=== PATIENT | male | born 1945 | race African-American/Black ===

== ENCOUNTER 2016-12-28 06:02 | Emergency (ER) | payer MEDICARE, BC, OTHER ==
[~2016-12-28] VITALS: Ht 177.8 cm; Wt 61.9 kg
[2016-12-28] MEDS ORDERED: ALBUTEROL (0.083%) 2.5MG/3ML NEB HHN STA (08:49)
[2016-12-28] MEDS ORDERED: PREDNISONE 20MG TABLET PO STA (08:49)
[2016-12-28] MEDS ORDERED: IPRATROPIUM BROMIDE (0.02%) 0.5MG/2.5ML NEB HHN STA (08:49)
[2016-12-28 11:20] VITALS: BP 138/62
== END 2016-12-28 10:50 | disposition home or self-care (01) ==
LOC: ER 08:44
DX: R06.02 Shortness of breath (principal); J44.9 Chronic obstructive pulmonary disease, unspecified; Z71.6 Tobacco abuse counseling
CPT/HCPCS: 71010; 99284; 99406; J7611

== ENCOUNTER 2016-12-28 11:23 | Emergency (ER) | payer MEDICARE, BC, OTHER | END 2016-12-28 12:58 | disposition left against medical advice (07) | LOC: ER 12:23 | DX: Z53.21 Procedure and treatment not carried out due to patient leaving prior to being seen by health care provider (principal) ==

== ENCOUNTER 2018-03-12 12:58 | Emergency (ER) | payer MEDICARE, BC, OTHER ==
[~2018-03-12] VITALS: Ht 177.8 cm; Wt 61.0 kg
[2018-03-12 13:09] VITALS: BP 129/54
== END 2018-03-12 16:30 | disposition home or self-care (01) ==
LOC: ER 16:20
DX: M54.9 Dorsalgia, unspecified (principal); J02.9 Acute pharyngitis, unspecified; J44.9 Chronic obstructive pulmonary disease, unspecified; Z98.890 Other specified postprocedural states
CPT/HCPCS: 99283

== ENCOUNTER 2018-07-01 13:36 | Inpatient (IN) | payer MEDICARE, BC, OTHER ==
[~2018-07-01] VITALS: Ht 185.4 cm; Wt 72.6 kg
[2018-07-01] MEDS ORDERED: ALBUTEROL (0.083%) 2.5MG/3ML NEB HHN STA (16:15)
[2018-07-01] MEDS ORDERED: MAGNESIUM 2 G PREMIX 50 ML IV STA (16:15)
[2018-07-01] MEDS ORDERED: IPRATROPIUM BROMIDE (0.02%) 0.5MG/2.5ML NEB HHN STA (16:15)
[2018-07-01] MEDS ORDERED: METHYLPREDNISOLONE SOD SUCC 125 MG/2 ML VIAL IV STA (16:15)
[2018-07-01 17:19] LABS: BASOPHILS % 1.1 % (0.0-2.0); EOSINOPHILS % 2.5 % (0.0-5.0); HEMATOCRIT. 47.9 % (42.0-52.0); HEMOGLOBIN. 16.1 g/dL (14.0-18.0); LYMPHOCYTES % 15.1 % (20.0-50.0); MEAN CORPUSCULAR HEMOGLOBIN 29.9 pg (28.0-32.0); MEAN PLATELET VOLUME 7.8 fl (7.4-10.4); MONOCYTES % 7.9 % (2.0-8.0); NEUTROPHILS % 73.4 % (40.0-76.0); PLATELET 280 x1000/uL (130-400); RED BLOOD CELL COUNT 5.38 mill/uL (4.7-6.1); RED CELL DISTRIBUTION WIDTH 13.2 % (11.6-14.6)
[2018-07-01 17:26] LABS: CHLORIDE 106 mEq/L (98-107)
[2018-07-01 17:28] LABS: PARTIAL THROMBOPLASTIN TIME 29.6 sec (23.4-31.0); PROTHROMBIN TIME 10.5 sec (9.1-11.1)
[2018-07-01] MEDS ORDERED: LEVOFLOXACIN 750MG PREMIX 150 ML IV ONE (18:15)
[2018-07-01 20:00] VITALS: BP 135/55
[2018-07-01 23:03] VITALS: BP 137/69
[2018-07-02] VITALS: BP 124/74
[2018-07-02] MEDS ORDERED: GUAIFENESIN 200MG/10ML SUGAR FREE UDC PO PRN (03:00)
[2018-07-02] MEDS ORDERED: ACETAMINOPHEN 325MG TABLET PO PRN (03:00)
[2018-07-02] MEDS ORDERED: CLONIDINE 0.1MG TABLET PO PRN (03:00)
[2018-07-02] MEDS ORDERED: ONDANSETRON HCL 4MG/2ML INJ IV PRN (03:00)
[2018-07-02] MEDS ORDERED: DIPHENHYDRAMINE 50MG/ML VIAL IV PRN (03:00)
[2018-07-02] MEDS ORDERED: MAGNESIUM/ALUMINUM HYDROXIDE/SIMETHICONE 30ML UDC PO PRN (03:00)
[2018-07-02] MEDS ORDERED: LORAZEPAM 2MG/ML CPJ IV PRN (03:00)
[2018-07-02] MEDS ORDERED: DOCUSATE SODIUM 100MG CAPSULE PO PRN (03:00)
[2018-07-02] MEDS ORDERED: NA PHOS,M-B/NA PHOS,DI-BA ENEMA 118ML PR PRN (03:00)
[2018-07-02] MEDS ORDERED: HYDRALAZINE 20MG/ML VIAL IV PRN (03:00)
[2018-07-02] MEDS ORDERED: HYDROCODONE/ACETAMINOPHEN 5/325MG TABLET PO PRN (03:00)
[2018-07-02] MEDS: HYDROMORPHONE HCL/PF 2MG/ML CPJ IV PRN ×3 (03:27→22:35)
[2018-07-02 04:00] VITALS: BP 121/60
[2018-07-02] MEDS: METHYLPREDNISOLONE SOD SUCC 125 MG/2 ML VIAL IV SCH ×4 (05:23→22:31)
[2018-07-02] MEDS: LEVOFLOXACIN 500MG PREMIX 100 ML IV SCH (05:24)
[2018-07-02] MEDS: SODIUM CHLORIDE 0.9% INJ 3ML FLUSH IVF SCH ×2 (05:25→14:45)
[2018-07-02 08:00] VITALS: BP 148/58
[2018-07-02] MEDS: ASPIRIN 81MG EC TABLET PO SCH (09:02)
[2018-07-02] MEDS: ENOXAPARIN 40MG/0.4ML SYR SUBCUT SCH (09:03)
[2018-07-02 11:27] LABS: CREATINE KINASE 234 IU/L (39-308)
[2018-07-02 11:31] LABS: CREATINE KINASE MB FRACTION 4.4 ng/mL (0.5-3.6)
[2018-07-02 12:00] VITALS: BP 136/68
[2018-07-02 16:00] VITALS: BP 170/87
[2018-07-02 20:00] VITALS: BP 116/51
[2018-07-03] VITALS: BP 121/60
[2018-07-03] MEDS: IPRATROPIUM/ALBUTEROL 0.5-3(2.5)MG/3ML NEB INH PRN ×2 (01:02→22:32)
[2018-07-03 04:00] VITALS: BP 124/66
[2018-07-03] MEDS: LEVOFLOXACIN 500MG PREMIX 100 ML IV SCH (04:56)
[2018-07-03] MEDS: METHYLPREDNISOLONE SOD SUCC 125 MG/2 ML VIAL IV SCH ×3 (05:09→17:48)
[2018-07-03 07:58] LABS: CHLORIDE 102 mEq/L (98-107)
[2018-07-03 08:00] VITALS: BP 131/60
[2018-07-03 08:05] LABS: HEMATOCRIT. 39.3 % (42.0-52.0); HEMOGLOBIN. 13.2 g/dL (14.0-18.0); MEAN CORPUSCULAR HEMOGLOBIN 29.6 pg (28.0-32.0); MEAN CORPUSCULAR VOLUME 88.4 fL (80.0-94.0); PLATELET 252 x1000/uL (130-400); RED BLOOD CELL COUNT 4.44 mill/uL (4.7-6.1); RED CELL DISTRIBUTION WIDTH 12.8 % (11.6-14.6)
[2018-07-03] MEDS: SODIUM CHLORIDE 0.9% INJ 3ML FLUSH IVF SCH ×3 (09:03→21:58)
[2018-07-03] MEDS: ASPIRIN 81MG EC TABLET PO SCH (09:04)
[2018-07-03] MEDS: ENOXAPARIN 40MG/0.4ML SYR SUBCUT SCH (09:05)
[2018-07-03 12:00] VITALS: BP 135/69
[2018-07-03 14:08] LABS: PLATELET ESTIMATE NORMAL
[2018-07-03 16:00] VITALS: BP 110/59
[2018-07-03 17:04] LABS: CREATINE KINASE 129 IU/L (39-308); CREATINE KINASE MB FRACTION 2.4 ng/mL (0.5-3.6)
[2018-07-03 20:00] VITALS: BP 119/52
[2018-07-04] VITALS: BP 134/68
[2018-07-04] MEDS: METHYLPREDNISOLONE SOD SUCC 125 MG/2 ML VIAL IV SCH ×4 (00:41→17:49)
[2018-07-04 04:00] VITALS: BP 144/68
[2018-07-04] MEDS: SODIUM CHLORIDE 0.9% INJ 3ML FLUSH IVF SCH ×2 (07:05→13:25)
[2018-07-04 08:00] VITALS: BP 155/77
[2018-07-04] MEDS: ASPIRIN 81MG EC TABLET PO SCH (09:00)
[2018-07-04] MEDS: HYDROMORPHONE HCL/PF 2MG/ML CPJ IV PRN (09:06)
[2018-07-04] MEDS: ENOXAPARIN 40MG/0.4ML SYR SUBCUT SCH (09:11)
[2018-07-04] MEDS: LEVOFLOXACIN 500MG TABLET PO SCH (10:36)
[2018-07-04 12:00] VITALS: BP 139/63
[2018-07-04 16:00] VITALS: BP 123/60
[2018-07-04 20:00] VITALS: BP 147/66
[2018-07-05] VITALS: BP 116/54
[2018-07-05] MEDS: METHYLPREDNISOLONE SOD SUCC 125 MG/2 ML VIAL IV SCH ×4 (00:26→17:47)
[2018-07-05 04:00] VITALS: BP 128/57
[2018-07-05] MEDS: SODIUM CHLORIDE 0.9% INJ 3ML FLUSH IVF SCH ×2 (06:04→13:13)
[2018-07-05 08:00] VITALS: BP_SYST 141; BP_DIAS 60; BP_DIAS 62
[2018-07-05] MEDS: ENOXAPARIN 40MG/0.4ML SYR SUBCUT SCH (08:22)
[2018-07-05] MEDS: ASPIRIN 81MG EC TABLET PO SCH (08:22)
[2018-07-05] MEDS: LEVOFLOXACIN 500MG TABLET PO SCH (11:10)
[2018-07-05] MEDS: HYDROMORPHONE HCL/PF 2MG/ML CPJ IV PRN (11:11)
[2018-07-05 12:00] VITALS: BP 144/53
[2018-07-05] MEDS ORDERED: HYDRALAZINE 10 MG in DEXTROSE 5% WATER 50 ML IV PRN (15:30)
[2018-07-05 16:00] VITALS: BP_SYST 131; BP_DIAS 52; BP_DIAS 83
[2018-07-05 20:00] VITALS: BP 131/56
[2018-07-06] VITALS: BP 116/51
[2018-07-06] MEDS: METHYLPREDNISOLONE SOD SUCC 125 MG/2 ML VIAL IV SCH ×2 (00:45→06:17)
[2018-07-06] MEDS: SODIUM CHLORIDE 0.9% INJ 3ML FLUSH IVF SCH ×2 (00:46→06:18)
[2018-07-06 04:00] VITALS: BP 116/56
[2018-07-06 08:00] VITALS: BP 143/62
[2018-07-06] MEDS: ENOXAPARIN 40MG/0.4ML SYR SUBCUT SCH (08:22)
[2018-07-06] MEDS: ASPIRIN 81MG EC TABLET PO SCH (08:22)
[2018-07-06 10:51] VITALS: BP 126/62
[2018-07-06] MEDS: LEVOFLOXACIN 500MG TABLET PO SCH (11:00)
[2018-07-06 11:13] VITALS: BP 132/68
== END 2018-07-06 11:30 | DRG 190 ==
LOC: ER 13:36 → 6EST 18:54 → EDBEDREQ 18:58 → EDBEDREQTM 18:58 → ENRESERV 21:40
PROVIDERS: ADMIT Internal Medicine; ATTEND Internal Medicine
DX: J44.1 Chronic obstructive pulmonary disease with (acute) exacerbation (principal); J18.0 Bronchopneumonia, unspecified organism; J44.0 Chronic obstructive pulmonary disease with (acute) lower respiratory infection; H91.90 Unspecified hearing loss, unspecified ear; Z59.0 Homelessness
CPT/HCPCS: 36415; 71045; 72110; 80048; 82550; 82553; 83880; 84484; 87804; 93005; 94640; 96365; 96366; 96375; 97161; 99285; C1893; J1170; J1650; J1956; J2930; J3475; J7040; J7611; J7620

== ENCOUNTER 2022-11-14 10:58 | Emergency (ER) | payer MEDICARE, BC ==
[~2022-11-14] VITALS: Ht 177.8 cm; Wt 59.0 kg
[2022-11-14 11:15] VITALS: BP 104/35
[2022-11-14] MEDS ORDERED: ACETAMINOPHEN 325MG TABLET PO STA (12:24)
[2022-11-14] MEDS ORDERED: ALBUTEROL (0.083%) 2.5MG/3ML NEB HHN ONE (12:30)
[2022-11-14] MEDS ORDERED: PREDNISONE 20MG TABLET PO ONE (12:30)
[2022-11-14 13:16] LABS: BASOPHILS % 0.7 % (0.0-2.0); EOSINOPHILS % 3.3 % (0.0-5.0); HEMATOCRIT. 38.7 % (42.0-52.0); HEMOGLOBIN. 12.9 g/dL (14.0-18.0); LYMPHOCYTES % 11.4 % (20.0-50.0); MEAN CORPUSCULAR HEMOGLOBIN 29.4 pg (28.0-32.0); MEAN CORPUSCULAR VOLUME 88.3 fL (80.0-94.0); MEAN PLATELET VOLUME 7.1 fl (7.4-10.4); NEUTROPHILS % 75.6 % (40.0-76.0); PLATELET 308 x1000/uL (130-400); RED BLOOD CELL COUNT 4.38 mill/uL (4.7-6.1)
[2022-11-14 13:18] LABS: CHLORIDE 111 mEq/L (98-107)
[2022-11-14] MEDS ORDERED: ALBU18HF2 IH (16:58)
[2022-11-14] MEDS ORDERED: ACET-2708 MT (16:58)
[2022-11-14] MEDS ORDERED: P50 MT (16:58)
== END 2022-11-14 18:00 | disposition home or self-care (01) ==
LOC: ER 10:58
DX: M79.662 Pain in left lower leg (principal); J44.1 Chronic obstructive pulmonary disease with (acute) exacerbation; Z87.01 Personal history of pneumonia (recurrent)
CPT/HCPCS: 36415; 71045; 73590; 73610; 73620; 80053; 83880; 85025; 93971; 94640; 99285; J7512